=== PATIENT | female | born 1965 | race African-American/Black ===

== ENCOUNTER 2016-10-17 01:42 | Emergency (ER) | payer OTHER ==
--- NOTE | ~2016-10-17 | CR72 ---
[facility]. [facility] A Service of [facility] & [facility] RADIOLOGY TEXT RESULTS PATIENT: NEIDA BOJORQUEZ LOCATION: SED : 63 UNIT #: [id number] AGE: [address]: Abel Barrera MD SEX: F ORDER DR: [id number] [address] [address] [id number] MR#: [id number] Acc #: [id number] NAME: NEIDA BOJORQUEZ : 1965 SEX: F STUDY DATE/TIME: 10/17/2016 2:13 UNIT: SED ROOM: STUDY DESCRIPTION: CR Chest Single View Portable Attending Physician: Abel Barrera M.D. Ordering Physician: Abel Barrera M.D. Primary Care Physician: Primary Care Physician No MEDICAL IMAGING REPORT This report is preliminary unless electronic signature is present. EXAM Portable chest INDICATIONS Cough and chest tightness tonight with shortness of air. FINDINGS A portable upright view of the chest was obtained. The heart size and vascularity are normal and the lungs re clear and the bones are normal. There is no comparison. IMPRESSION No active disease. Dictated by... Erick Muro M.D. THIS IS AN ELECTRONICALLY VERIFIED REPORT Erick Muro M.D. at 10/17/2016 5:56 AM FORTINO/ximena TD: 10/17/2016 05:09 JOB #: [id number] MEDICAL IMAGING REPORT Page 1 of 1
[2016-10-17] MEDS ORDERED: NORVASC10 MG PO (01:54)
[2016-10-17] MEDS ORDERED: COMBIVENT RESPIM4 GM (01:54)
== END 2016-10-17 02:52 | disposition home or self-care (01) ==
LOC: SED 01:42
DX: J20.9 Acute bronchitis, unspecified (principal); I10 Essential (primary) hypertension; F17.200 Nicotine dependence, unspecified, uncomplicated; Z79.899 Other long term (current) drug therapy
CPT/HCPCS: 71010; 99283

== ENCOUNTER 2016-12-11 19:12 | Inpatient (IN) | payer OTHER ==
[~2016-12-11] VITALS: Ht 157.5 cm; Wt 85.5 kg
--- NOTE | ~2016-12-11 | HP ---
Unit #: [id number] #: [id number] Patient: NEIDA GUEVARA [id number] [address] [place], [place] [address] [id number] I MR#: [id number] NAME: NEIDA GUEVARA ROOM: 568 Age: 51 Sex: F Admission Date: 12/11/2016 : 1965 Attending Physician: Luis Fernando Valenzuela M.D. Primary Care Physician: Eliot Ramirez M.D. HISTORY AND PHYSICAL REASON FOR ADMISSION Shortness of breath. HISTORY Ms. Guevara is a 51-year-old female who works as a nurse first aid for a local [employer] and is known to have had hypertension for a number of years, treated with amlodipine 10 mg daily with gratifying results. Two nights ago she was awakened from sleep with sudden onset of shortness of breath and chest tightness, which she thought was related to anxiety and did not seek help. She sat up in bed with some relief of her symptoms, which were associated with heaviness and pressure in the chest without any radiation to the neck, back, jaw or the elbows, and there was no associated diaphoresis, dizziness or lightheadedness. She could not sleep well that night and throughout the day yesterday continued to complain of shortness of breath with occasional cough productive of mucoid sputum. She came to the emergency room late in the evening yesterday and was admitted with a diagnosis of possible pulmonary edema. She has never had similar shortness of breath in the past and has been gainfully employed. She denies any history of previous NC or hyperlipidemia but was told to have borderline diabetes mellitus that did not require any medical regimen. The patient denies any history of ankle edema, orthopnea or nocturnal dyspnea in the past. PAST SURGICAL HISTORY 1. Cholecystectomy. 2. Caesarian section followed by a total hysterectomy. SOCIAL AND PERSONAL HISTORY She has a total smoking history of about 25 pack-years and stopped smoking 3 weeks ago. FAMILY HISTORY Strongly positive for coronary artery disease. Her mother suffered from an NC in her 30s and at the age of 56. One sister had diabetes mellitus, suffered an acute NC and in her 50s. PHYSICAL EXAMINATION GENERAL: Physical examination reveals a middle-aged female, looks younger than her stated age, is in no acute cardiorespiratory distress. VITAL SIGNS: Blood pressure is 150/90, heart rate is 90 per minute and regular. VASCULAR: There is no jugular venous distention. Both carotids have a normal upstroke without any bruits. Pedal pulses are normal. CARDIAC: Exam shows apical impulse is palpable in the fifth intercostal Unit #: [id number] #: [id number] Patient: NEIDA GUEVARA space in midclavicular line and is normal. Both heart sounds are normal. An S4 gallop is heard. There is no murmur or rub. CHEST: Examination is normal to palpation and percussion. There are diminished breath sounds in both lung torres with rhonchi and rales in both lung bases. ABDOMEN: Examination shows soft, nontender anterior abdominal wall. There are no masses or organomegaly. RECTAL: Examination was not done. CHEMICAL PROCESS ENGINEER: Examination is within normal limits. DIAGNOSTIC STUDIES CARDIOVASCULAR: Electrocardiogram at the time of admission shows sinus tachycardia, left ventricular hypertrophy with T wave abnormalities in leads I, AVL, V6 suggestive of LVH. Lateral wall ischemia cannot be excluded. There is possible left atrial enlargement. IMAGING: Chest x-ray shows normal sized heart. Interstitial and alveolar infiltrates consistent with pulmonary edema. LABORATORY: Potassium is 3.9, sodium 142, GFR 120, creatinine 0.6. MB percent 4.8. Troponin level was normal at the time of admission. Repeat troponin level is normal this morning. MB percent band is 4.8, which is elevated. Serum cholesterol 161, triglycerides 87, LDL 104, HDL 40. Hemoglobin 13.8, hematocrit 41.6, white cells 10,400 with a normal differential. DIAGNOSES 1. Acute pulmonary edema. 2. Chest pain secondary to ischemic heart disease. 3. Uncontrolled hypertension. 4. COPD. 5. Reformed smoker. PLAN Electrocardiogram will be repeated today. She will be given intravenous Lasix, Metoprolol, Lovenox, aspirin and morphine. A cardiac catheterization will be scheduled later this morning to rule out significant ischemic heart disease as the cause of new onset of chest pain at rest accompanied by elevated serum MB percent and acute left ventricular dysfunction. The procedure and risks have been discussed with the patient. Dictated by Dennis Santiago TD: 12/12/2016 10:48 JOB #: [id number] Unit #: [id number] #: [id number] Patient: GUEVARANEIDA HISTORY AND PHYSICAL Page 1 of 1 X Cezar Tomlin MD HISTORY AND PHYSICAL
--- NOTE | ~2016-12-11 | CR72 ---
[facility]. [facility] A Service of [facility] RADIOLOGY TEXT RESULTS PATIENT: NEIDA GUEVARA LOCATION: [facility] 568-01 : 63 UNIT #: [id number] AGE: [address]: Luis Fernando Valenzuela MD SEX: F ORDER DR: [id number] [place] [id number] I MR#: [id number] #: [id number] NAME: NEIDA GUEVARA : 1965 SEX: F STUDY DATE/TIME: 12/11/2016 19:54 UNIT: SEDOF ROOM: [facility] STUDY DESCRIPTION: CR Chest Single View Portable Attending Physician: Luis Fernando Valenzuela M.D. Ordering Physician: Alejandro Castellon M.D. Primary Care Physician: Eliot Ramirez M.D. MEDICAL IMAGING REPORT This report is preliminary unless electronic signature is present. EXAM Chest portable, 12/11/2016 19:54 hours HISTORY 51-year-old woman with complaint of chest pain, shortness of air and anxiety for 3 days. History of ovarian cancer 2009. Hypertension. COMPARISON 10/17/2016 FINDINGS Portable upright chest demonstrates mild cardiomegaly with tortuous aorta. There is pulmonary venous distension and diffuse mixed interstitial and airspace change in both lungs, new from the prior study. Findings are most confluent at the right lung base and in the left suprahilar region. The appearance favors asymmetric edema although diffuse pneumonia could have this appearance. IMPRESSION Cardiomegaly with new diffuse mixed interstitial and airspace changes in both lungs most prominent in the left suprahilar region and the right medial lung base. Asymmetric edema is favored although multifocal pneumonia could have this appearance. No definite effusion seen. Dictated by... Barbi Verdugo M.D. THIS IS AN ELECTRONICALLY VERIFIED REPORT Barbi Verdugo M.D. at 12/12/2016 9:08 AM Wanda TD: 12/12/2016 08:57 [facility] A Service of [facility] & [facility] RADIOLOGY TEXT RESULTS PATIENT: NEIDA GUEVARA LOCATION: C5 568-01 : 63 UNIT #: [id number] AGE: [address]: Luis Fernando Valenzuela MD SEX: F ORDER DR: JOB #: [id number] MEDICAL IMAGING REPORT Page 1 of 1
--- NOTE | ~2016-12-11 | EKG ---
PATIENT: NEIDA GUEVARA UNIT #: [id number] Ventricular Rate: 121 BPM Atrial Rate: 121 BPM P-R Interval: 126 ms QRS Duration: 78 ms Q-T Interval: 364 ms QTC Calculation(Bezet): 516 ms P [place]: 58 degrees Calculated R [place]: 15 degrees Calculated T [place]: 105 degrees Diagnosis Line: Sinus tachycardia Diagnosis Line: Possible Left atrial enlargement Diagnosis Line: Left ventricular hypertrophy Diagnosis Line: T wave abnormality, consider lateral ischemia Diagnosis Line: Abnormal ECG Diagnosis Line: No previous ECGs available Diagnosis Line: Confirmed by ERICA THOMAS MD ([id number]) on Diagnosis Line: 12/16/2016 9:59:33 PM INTERPRETING MD: ALANA
--- NOTE | ~2016-12-11 | EKG ---
PATIENT: NEIDA GUEVARA UNIT #: [id number] Ventricular Rate: 115 BPM Atrial Rate: 115 BPM P-R Interval: 122 ms QRS Duration: 78 ms Q-T Interval: 390 ms QTC Calculation(Bezet): 539 ms P [place]: 55 degrees Calculated R [place]: 18 degrees Calculated T [place]: 95 degrees Diagnosis Line: Sinus tachycardia Diagnosis Line: Voltage criteria for left ventricular hypertrophy Diagnosis Line: Nonspecific T wave abnormality Diagnosis Line: Abnormal ECG Diagnosis Line: When compared with ECG of 11-DEC-2016 19:46, Diagnosis Line: (unconfirmed) Diagnosis Line: Nonspecific T wave abnormality has replaced Diagnosis Line: inverted T waves in Lateral leads Diagnosis Line: Confirmed by MARIE ANDERSON MD ([id number]) on 12/12/2016 Diagnosis Line: 7:21:56 PM INTERPRETING MD: MONICA PINTO
--- NOTE | ~2016-12-11 | CO ---
Unit #: [id number] #: [id number] Patient: NEIDA GUEVARA [id number] [address] [address] [id number] I MR#: [id number] NAME: NEIDA GUEVARA ROOM: 568 Age: 51 Sex: F Admission Date: 12/12/2016 : 1965 Attending Physician: Luis Fernando Valenzuela M.D. Primary Care Physician: Eliot Ramirez M.D. Consultation Date: 12/13/2016 CONSULTATION REPORT REASON FOR CONSULTATION Anxiety, depression. HISTORY OF PRESENT ILLNESS Ms. Neida Guevara is a 51-year-old female, seen in room 558, bed 1 on 12/13/2016. The patient dressed casually in hospital attire, lying comfortably in bed. The patient reported having severe anxiety and nervousness. The patient also reported feeling sad, depressed. Denied any suicidal or homicidal ideation. Denied any psychotic symptom. The patient reports lately her depression and anxiety are getting worse. Denied any psychotic symptom. The patient's vital signs; temperature 98.0, heart rate 96, respirations 18, blood pressure 104/77, and oxygen saturation 93%. The patient denied any history of any substance abuse. PAST PSYCHIATRIC HISTORY Unremarkable for any history of any psychiatric treatment inpatient treatment or outpatient treatment. MEDICAL HISTORY The patient is diagnosed with acute pulmonary edema, chest pain, nonischemic cardiomyopathy status poor cardiac cath performed on 12/12/2016 which revealed left ventricular ejection fraction 15%, uncontrolled hypertension, chronic obstructive pulmonary disease, hyperlipidemia. MEDICATION HISTORY Combivent, atorvastatin, metoprolol, furosemide, lisinopril, aspirin, and spironolactone. FAMILY HISTORY AND SOCIAL HISTORY The patient has a good support system. No history of abuse. No history of any substance abuse. REVIEW OF SYSTEMS Complete review of systems is unremarkable except as mentioned above. MENTAL STATUS EXAMINATION The patient's vital signs; temperature 98.0, heart rate 96, respirations 18, blood pressure 104/77. General appearance; the patient dressed casually, lying comfortably in bed, dressed in hospital attire. Attention span and concentration, fair. Speech, regular rate and coherent. Oriented in time, place, and person. Mood and affect; sad, dysphoric, anxious. Thought process, coherent. Thought content, the patient denied Unit #: [id number] #: [id number] Patient: NEIDA GUEVARA any thoughts of harming self or others or any psychotic symptom. Language, intact. Fund of knowledge, fair. Insight and judgment, fair to slightly impaired. DIAGNOSES Psychiatric: Major depressive disorder, recurrent, severe, F33.2; anxiety disorder, not otherwise specified, F40.01. ASSESSMENT/PLAN 1. Supportive psychotherapy and psychoeducation provided to the patient. 2. Educated about benefits and side effects of medication and course and prognosis of illness. 3. Advised to continue with current medication and start Ativan 0.5 mg b.i.d. for anxiety and Celexa 20 mg daily for depression. We will continue to follow. Please feel free to call if any questions, telephone #[phone]. The patient was also given crisis line number of [facility] #[phone]. Dictated by... Dennis Felix/terrance TD: 12/16/2016 01:29 JOB #: [id number] CONSULTATION REPORT Page 1 of 1 X Blaise Arnold MD X CONSULTATION REPORT
--- NOTE | ~2016-12-11 | DS ---
Unit #: [id number] #: [id number] Patient: NEIDA GUEVARA [id number] [address] [place], [place] [address] [id number] I MR#: [id number] NAME: NEIDA GUEVARA ROOM: 568 Age: 51 Sex: F Admission Date: 12/12/2016 : 1965 Discharge Date: 12/13/2016 Attending Physician: Luis Fernando Valenzuela M.D. Primary Care Physician: Eliot Ramirez M.D. DISCHARGE SUMMARY DISCHARGE DIAGNOSES 1. Acute pulmonary edema. 2. Chest pain. 3. Nonischemic cardiomyopathy. 4. Status post cardiac cath performed by Dr. Tomlin on 12/12/2016 which revealed left ventricular ejection fraction of 15%. Coronaries are normal. 5. Uncontrolled hypertension. 6. Chronic obstructive pulmonary disease. 7. Hyperlipidemia. 8. Reformed smoker. DISCHARGE MEDICATIONS 1. Combivent inhalation p.r.n. for shortness of breath. 2. Atorvastatin 10 mg p.o. at h.s. 3. Stop her Norvasc. 4. Metoprolol 25 mg p.o. twice daily. 5. Furosemide 40 mg p.o. daily. 6. Lisinopril 20 mg p.o. daily at bedtime. 7. Aspirin 81 mg daily. 8. Spironolactone 25 mg daily. HOSPITAL COURSE This is a 51-year-old -[place] female. She came in with complaints of sudden onset of shortness of breath and chest tightness. She also felt like it could be anxiety. She has been having some anxiety and panic attacks. The patient did have occasional cough. She did not have any radiation of the pain up into her neck, jaw, shoulders, arms or elbow. No diaphoresis, dizziness or lightheadedness. In the emergency room, her x-ray showed asymmetrical edema. No effusions. Also, a CT of the chest was performed because of sudden onset of the shortness of breath. It shows no evidence of pulmonary embolism, moderate cardiomegaly with marked left ventricular dilatation, diffuse interstitial opacity throughout both lungs. Findings suggest pulmonary edema. Mild to moderate adenopathy in the middle mediastinum. The patient's creatinine was 0.8. On initial cardiac enzymes, her troponin remained 0.03 and 0.04. Percentage of MB was elevated to 4.8. With her symptoms and her x-rays showing some cardiomegaly and with the chest pain, Dr. Tomlin recommended a cardiac cath to further evaluate ischemic heart disease, especially in view of the elevated serum MB percent and acute left ventricular dysfunction. The patient was initiated on IV Lasix and started on metoprolol, Lovenox therapeutic dosing, aspirin and had morphine p.r.n. Unit #: [id number] #: [id number] Patient: NEIDA GUEVARA The cardiac cath performed by Dr. Tomlin on 12/12/2016 showed normal coronaries with LVEF of 15%. Dr. Tomlin's recommendations are for the patient to continue on 1800 mL fluid restriction, 2 g sodium diet along will continue on her beta peggy, NAREN inhibitor, diuretic, Aldactone added and baby aspirin. The beta blockers and NAREN inhibitors should be gradually increased over a period of time for maximum medical therapy. The plans are for the patient to return back to the office at the end of this month and he will reevaluate and make a decision on if the patient may need a defibrillator. On day of discharge, the patient is in stable condition. She does have some anxiety issues. It is noted that Dr. Arnold with Psychiatry is to see the patient and make any final recommendations. PHYSICAL EXAMINATION ON TIME OF DISCHARGE VITAL SIGNS: Blood pressure 112/64. Heart rate 100. Respirations 18. Temperature 97.3. O2 sats 100% on room air. HEART: S1, S2. Regular rate and rhythm. LUNGS: Bilaterally clear throughout. ABDOMEN: Soft, nontender. EXTREMITIES: Pedal pulses are palpable. No pedal edema. DIAGNOSTIC STUDIES LABORATORY: Glucose is 168, BUN 9, creatinine 1.1, EGFR 66.4, sodium 134. This was yesterday. Her potassium is 3.4. Bilirubin total is 1.0, AST 21, ALT 27. Fasting lipid profile: Cholesterol is 161, triglycerides 87, LDL 104, HDL 40. Latest cardiac enzymes: CK total is 90, MB 4.3, percentage of MB 4.8, troponin 0.04. WBC 10.4, hemoglobin 13.8, hematocrit 41.6 and platelets 330. A repeat creatinine this morning is 1.1. CARDIOVASCULAR: Telemetry shows normal sinus rhythm. PLAN/INSTRUCTION 1. The patient will be discharged home today and follow up with Dr. Tomlin on December 26 at 3:30 p.m. At that time, he will do a limited 2-D echo in the office to evaluate any improvement in her LVEF. 2. Dr. Tomlin is advising the patient to stay off work until after her office appointment. He will give her a release note when she comes in for the followup. 3. Reiterate with the patient CHF education, fluid restriction and sodium restriction. 4. New prescriptions written for the patient for her new medications which include lisinopril 20 mg one tablet daily; metoprolol 25 mg p.o. twice daily; Lasix 40 mg one tablet daily; spironolactone 25 mg one tablet daily and aspirin 81 mg daily. The patient is on NAREN inhibitor for her cardiomyopathy. 5. Followup with Dr. Ramirez, her PCP, in two to three weeks. 6. Dr. Arnold with Psychiatry will see the patient today. The patient says she has been having for some time some panic/anxiety attack and that is really why she came to the hospital. Also, she complains of having some insomnia. He will see. The patient has a lot of personal issues. She has two sons that have been incarcerated last week and she has just had a lot of stressful events in her personal life. Unit #: [id number] #: [id number] Patient: NEIDA GUEVARA 7. I encouraged the patient to completely quit smoking. Smoking cessation information provided to the patient. Dictated by... Eboni Erazo A.P.R.N. for Cezar Tomlin M.D. Rachel TD: 12/13/2016 12:28 JOB #: [id number] DISCHARGE SUMMARY Page 1 of 1 X Eboni Erazo APRN X DISCHARGE SUMMARY
--- NOTE | ~2016-12-11 | CT16 ---
[facility] A Service of [facility] & [facility] RADIOLOGY TEXT RESULTS PATIENT: NEIDA GUEVARA LOCATION: [facility] 568-01 : 61 UNIT #: [id number] AGE: [address]: Luis Fernando Valenzuela MD SEX: F ORDER DR: [id number] [place] [id number] I MR#: [id number] Acc #: [id number] NAME: NEIDA GUEVARA : 1965 SEX: F STUDY DATE/TIME: 12/11/2016 21:52 UNIT: SEDOF ROOM: [id number] STUDY DESCRIPTION: CT Angio Chest for PE Attending Physician: Luis Fernando Valenzuela M.D. Ordering Physician: Alejandro Castellon M.D. Primary Care Physician: Eliot Ramirez M.D. MEDICAL IMAGING REPORT This report is preliminary unless electronic signature is present. EXAM CT chest with contrast, pulmonary arteriography protocol, 12/11/2016. HISTORY 51-year-old female in the ED complaining of a 3-day history of worsening shortness of air and chest pain. Elevated D-dimer. TECHNIQUE CT examination of the chest with IV contrast. CTA images of the pulmonary arteries were reformatted as multiplanar MIP images. This CT exam was performed with one or more of the following radiation dose reduction techniques: automatic exposure control, adjustment of mA and/or kV according to patient size, and iterative reconstruction. FINDINGS No pulmonary embolism is demonstrated. Thoracic aorta is normal in caliber. Moderate cardiomegaly with significant left ventricular dilatation. No pericardial effusion. Smooth thickening of interstitial markings throughout both lungs, greatest in the lung bases and a tiny right pleural effusion. There is also patchy airspace opacity in the perihilar regions of the mid and upper lungs, sparing the lung periphery. The findings suggest potential cardiogenic pulmonary edema. Correlate for additional evidence of vascular congestion/CHF. Dependent atelectasis in the right posterior lung base. Enlarged lymph nodes throughout the middle mediastinum and both pulmonary jaylan are nonspecific. These may be enlarged due to lymphatic engorgement in the setting of pulmonary edema. Inflammatory or even neoplastic adenopathy is STS[facility] A Service of [facility] & [facility] RADIOLOGY TEXT RESULTS PATIENT: NEIDA GUEVARA LOCATION: [facility] 568-01 : [birth year] UNIT #: [id number] AGE: [address]: Luis Fernando Valenzuela MD SEX: F ORDER DR: not excluded. No comparison studies here. Background mild to moderate pulmonary emphysema. Central bronchial wall thickening. Limited upper abdominal images are unremarkable. IMPRESSION 1. No evidence of pulmonary embolism. Normal-caliber thoracic aorta. 2. Moderate cardiomegaly with marked left ventricular dilatation. No pericardial effusion. 3. Diffuse interstitial opacity throughout both lungs with more dense patchy ground-glass opacity in the perihilar portions of mid and upper lungs along with a tiny right pleural effusion. The constellation of findings and the pulmonary pattern suggests pulmonary edema. Correlate for cardiogenic pulmonary edema. Pneumonitis should be excluded clinically. 4. Mild to moderate pulmonary emphysema. 5. Qffg-ue-hjcyczed adenopathy in the middle mediastinum and both pulmonary jaylan. This is nonspecific. Cynthia enlargement due to lymphatic engorgement in the setting of pulmonary edema is considered most likely, but inflammatory or neoplastic adenopathy is not excluded. No comparison studies here. Dictated by... Sergio Barney M.D. THIS IS AN ELECTRONICALLY VERIFIED REPORT Sergio Barney M.D. at 12/12/2016 9:57 PM SARAHY/fabiola TD: 12/12/2016 09:48 JOB #: [id number] MEDICAL IMAGING REPORT Page 1 of 1
[~2016-12-11 19:12] MED LIST: COMBIVENT RESPIM4 GM; NORVASC10 MG PO
[2016-12-11 20:10] LABS: BASOPHIL% 0.3 % (0-2.5); EOSINOPHIL# 0.2 X10e3 (0-0.7); EOSINOPHIL% 2.5 % (0.0-7.0); HEMATOCRIT 42.7 % (35.0-45.0); HEMOGLOBIN 14.2 gm/dL (12.0-16.0); LYMPHOCYTE# 2.7 X10e3 (1.0-3.5); LYMPHOCYTE% 28.4 % (17.0-45.0); MEAN CELL VOLUME 89.5 FL (83-96); MEAN CORPUSCULAR HEMOGLOBIN 29.8 PG (28-34); MEAN CORPUSCULAR HGB CONC 33.3 g/dL (30-36); MEAN PLATELET VOLUME 8.8 FL (6.5-11.5); MONOCYTE# 1.1 X10e3 (0-1.0); MONOCYTE% 11.3 % (3.0-12.0); NEUTROPHIL# 5.5 X10e3 (1.5-7.1); NEUTROPHIL% 57.5 % (40-75); PLATELET COUNT 306 X10e3 (140-420); RED BLOOD COUNT 4.77 X10e (3.90-5.30); RED CELL DISTRIBUTION WIDTH 13.9 % (11.0-15.5); WHITE BLOOD COUNT 9.6 X10e3 (4.0-10.5)
[2016-12-11 20:13] LABS: DIFF IND NO
[2016-12-11 20:25] LABS: BUN/CREATININE RATIO 13.75; CALCIUM SERUM 9.2 mg/dL (8.4-10.2); CREATININE SERUM 0.8 mg/dL (0.6-1.4); GLOM FILT RATE Estimated 97.6 mL/min (>60); POTASSIUM 3.2 mmol/L (3.5-5.1)
[2016-12-12 05:30] LABS: HEMATOCRIT 41.6 % (35.0-45.0); HEMOGLOBIN 13.8 gm/dL (12.0-16.0); MEAN CELL VOLUME 90.1 FL (83-96); MEAN CORPUSCULAR HEMOGLOBIN 29.8 PG (28-34); MEAN CORPUSCULAR HGB CONC 33.1 g/dL (30-36); MEAN PLATELET VOLUME 9.2 FL (6.5-11.5); RED BLOOD COUNT 4.62 X10e (3.90-5.30); RED CELL DISTRIBUTION WIDTH 13.9 % (11.0-15.5); WHITE BLOOD COUNT 10.4 X10e3 (4.0-10.5)
[2016-12-12 06:04] LABS: ALBUMIN SERUM 3.1 g/dL (3.5-5.0); CALCIUM SERUM 8.9 mg/dL (8.4-10.2); CREATININE SERUM 0.6 mg/dL (0.6-1.4); GLOM FILT RATE Estimated 120.6 mL/min (>60); POTASSIUM 3.9 mmol/L (3.5-5.1); PROTEIN TOTAL SERUM 6.2 g/dL (6.0-8.3)
[2016-12-12 06:27] LABS: %MB 4.8 % (0.0-4.0); MB 4.3 ng/ml
[2016-12-12 09:38] LABS: CALCIUM SERUM 8.6 mg/dL (8.4-10.2); CREATININE SERUM 0.9 mg/dL (0.6-1.4); GLOM FILT RATE Estimated 84.7 mL/min (>60); POTASSIUM 3.4 mmol/L (3.5-5.1)
[2016-12-12 12:54] LABS: INR 1.1; PARTIAL THROMBOPLASTIN TIME 30.9 SECONDS (23.5-31.3); PROTHROMBIN TIME (PATIENT) 12.2 SECONDS (10.0-11.7)
[2016-12-12 14:59] LABS: POC - CKMB 4.6 ng/mL (0.0-7.9); POC - TROPONIN <0.05 ng/mL (<=0.05)
[2016-12-13 06:38] LABS: CREATININE SERUM 1.1 mg/dL (0.6-1.4); GLOM FILT RATE Estimated 66.4 mL/min (>60)
[2016-12-13] MEDS ORDERED: ATORVASTATIN CA10 MG PO (08:35)
[2016-12-13] MEDS ORDERED: PRINIVIL20 M1 PO (08:36)
[2016-12-13] MEDS ORDERED: METOPROLOL TAR25 MG PO (08:36)
[2016-12-13] MEDS ORDERED: FUROSEMIDE40 MG PO (08:37)
[2016-12-13] MEDS ORDERED: ALDACTONE25 MG PO (08:38)
[2016-12-13] MEDS ORDERED: ASPIRIN81 MG PO (08:39)
[2016-12-13] MEDS ORDERED: CELEXA20 MG PO (15:27)
[2016-12-13] MEDS ORDERED: ATIVAN0.5 MG PO (15:27)
== END 2016-12-13 16:28 | disposition home or self-care (01) | DRG 286 ==
LOC: SED 19:12 → C5C 23:06 → SEDOF 23:06 → SED 23:06 → UNDODEPER 12-12 00:20 → SEDOF 12-12 00:44 → C5C 12-12 00:44 → SED 12-12 02:25 → C5C 12-12 02:25 → SEDOF 12-12 02:25 → C5C 12-13 16:28
PROVIDERS: Emergency Medicine; Internal Medicine Advanced Heart Failure and Transplant Cardiology; Internal Medicine Cardiovascular Disease
PROC: B32TYZZ Computerized Tomography (CT Scan) of Left Pulmonary Artery using Other Contrast (ICD-10-PCS; principal; 2016-12-12)
PROC: 4A023N7 Measurement of Cardiac Sampling and Pressure, Left Heart, Percutaneous Approach (ICD-10-PCS; 2016-12-12)
PROC: B32SYZZ Computerized Tomography (CT Scan) of Right Pulmonary Artery using Other Contrast (ICD-10-PCS; 2016-12-12)
PROC: B211YZZ Fluoroscopy of Multiple Coronary Arteries using Other Contrast (ICD-10-PCS; 2016-12-12)
PROC: B215YZZ Fluoroscopy of Left Heart using Other Contrast (ICD-10-PCS; 2016-12-12)
DX: I42.8 Other cardiomyopathies (principal); J81.0 Acute pulmonary edema; F33.2 Major depressive disorder, recurrent severe without psychotic features; I10 Essential (primary) hypertension; J44.9 Chronic obstructive pulmonary disease, unspecified; Z87.891 Personal history of nicotine dependence; Z79.82 Long term (current) use of aspirin; F41.9 Anxiety disorder, unspecified; I20.9 Angina pectoris, unspecified
CPT/HCPCS: 36415; 71010; 71275; 80048; 80053; 80061; 82550; 82553; 82565; 84132; 84484; 85025; 85027; 85379; 85610; 85730; 93005; 94640; 94760; 96361; 96374; 99152; 99153; 99285; C1769; C1887; C1894; J1644; J1650; J1940; J2250; J2270; J3010; Q9967